=== PATIENT | male | born 1985 | race Two or more races ===

== ENCOUNTER 2021-12-24 19:10 | Inpatient (IN) | payer MEDICAID, OTHER ==
[~2021-12-24] VITALS: Ht 177.8 cm; Wt 155.0 kg
[2021-12-24 20:26] LABS: Basophils # (auto) 0 10 ^3/uL (0-0.2); Basophils % (auto) 0.7 % (0.0-2.0); Eosinophils # (auto) 0.1 10 ^3/uL (0-0.8); Eosinophils % (auto) 2.3 % (0.0-7.0); Hematocrit 44.7 % (41.0-53.0); Hemoglobin 14.8 g/dL (13.5-17.5); Lymphocytes # (auto) 2.1 10 ^3/uL (0.4-5.4); Lymphocytes % (auto) 34.8 % (10.0-50.0); Mean Corpuscular Hemoglobin 32.2 pg (28.0-32.0); Mean Corpuscular Hgb Conc. 33.1 g/dL (32.0-36.0); Mean Corpuscular Volume 97.3 fL (80.0-100.0); Monocytes # (auto) 0.8 10 ^3/uL (0-1.3); Monocytes % (auto) 13.1 % (0.0-12.0); Neutrophils % (auto) 49.1 % (37.0-80.0); Nucleated Red Blood Cells % 0.1 %; Red Cell Distribution Width 14.3 % (11.8-14.3); White Blood Cell 6.1 10^3/uL (4.4-10.8)
[2021-12-24 20:42] LABS: Albumin 3.8 g/dL (3.4-5.0); BUN/Creatinine Ratio 23.9; Calcium 9.6 mg/dL (8.5-10.1); Potassium 3.7 mmol/L (3.5-5.1)
[2021-12-24 20:45] LABS: Bilirubin, Total 0.2 mg/dL (0.2-1.0)
[2021-12-24] MEDS ORDERED: LACTATED RINGER'S 1,000 ML IV ONE (23:45)
[2021-12-24 23:51] LABS: Magnesium 1.9 mg/dL (1.6-2.6); Phosphorus 4.4 mg/dL (2.5-4.90)
[2021-12-25] MEDS ORDERED: ONDANSETRON HCL 4 MG/2 ML VIAL IV PRN (02:15)
[2021-12-25] MEDS ORDERED: DOCUSATE SOD 100 MG CAP PO PRN (02:15)
[2021-12-25] MEDS ORDERED: ACETAMINOPHEN 325 MG TAB PO PRN (02:15)
[2021-12-25] MEDS ORDERED: HYDROcodone-ACET 5/325MG TAB PO PRN (02:15)
[2021-12-25] MEDS ORDERED: NITROGLYCERIN 0.4 MG SL TAB SL PRN (03:30)
[2021-12-25] MEDS ORDERED: LORazepam 2MG/ML-1ML VIAL IV PRN (03:30)
[2021-12-25] MEDS ORDERED: MORPHINE SULFATE INJ 2 MG/ml SYRG IV PRN (03:30)
[2021-12-25] MEDS: SODIUM CHLOR 0.9% PF (SALINE LOCK) 10ML VIAL/SYR IV SCH ×3 (06:13→23:23)
[2021-12-25] MEDS ORDERED: LORazepam MDV 2MG/ML 10 ML IV ONE (07:43)
[2021-12-25] MEDS ORDERED: SODIUM CHLORIDE 0.9% 4,650 ML IV ONE (08:30)
[2021-12-25 08:53] LABS: Basophils # (auto) 0.1 10 ^3/uL (0-0.2); Basophils % (auto) 1.4 % (0.0-2.0); Eosinophils # (auto) 0.1 10 ^3/uL (0-0.8); Eosinophils % (auto) 1.3 % (0.0-7.0); Hematocrit 43.3 % (41.0-53.0); Hemoglobin 14.7 g/dL (13.5-17.5); Lymphocytes # (auto) 1.4 10 ^3/uL (0.4-5.4); Lymphocytes % (auto) 22.1 % (10.0-50.0); Mean Corpuscular Hgb Conc. 33.9 g/dL (32.0-36.0); Mean Corpuscular Volume 97.3 fL (80.0-100.0); Monocytes # (auto) 0.8 10 ^3/uL (0-1.3); Monocytes % (auto) 12.5 % (0.0-12.0); Neutrophils # (auto) 3.9 10 ^3/uL (1.6-8.6); Neutrophils % (auto) 62.7 % (37.0-80.0); Red Blood Cells 4.45 10^6/uL (4.5-5.90); White Blood Cell 6.3 10^3/uL (4.4-10.8)
[2021-12-25 08:58] LABS: Albumin 3.9 g/dL (3.4-5.0); Potassium 4.2 mmol/L (3.5-5.1)
[2021-12-25 09:01] LABS: Bilirubin, Total 0.6 mg/dL (0.2-1.0)
[2021-12-25] MEDS ORDERED: FOLIC ACID 1 MG in D5W 5% 50 ML INJ SCH (10:00)
[2021-12-25] MEDS: THIAMINE 100mg/ml INJ (200mg/2ml VIAL) IV SCH (10:37)
[2021-12-25] MEDS: MULTIPLE VITAMIN TAB PO SCH (10:37)
[2021-12-25] MEDS ORDERED: chlordiazePOXIDE HCL 25 MG CAP PO PRN (11:30)
[2021-12-25] MEDS: chlordiazePOXIDE HCL 25 MG CAP PO SCH ×3 (11:58→23:32)
[2021-12-25] MEDS ORDERED: IOHEXOL 350 MG/ML 100ML IJ ONE (12:28)
[2021-12-25] MEDS: SODIUM CHLORIDE 0.9% 1,000 ML IV SCH ×3 (12:51→23:23)
[2021-12-25] MEDS: PANTOPRAZOLE 40 MG TAB PO SCH (23:22)
[2021-12-25] MEDS: MORPHINE SULFATE INJ 2 MG/ml SYRG IV PRN (23:23)
[2021-12-26] MEDS: SODIUM CHLORIDE 0.9% 1,000 ML IV SCH ×4 (04:17→19:00)
[2021-12-26 05:07] VITALS: BP 137/94
[2021-12-26] MEDS: SODIUM CHLOR 0.9% PF (SALINE LOCK) 10ML VIAL/SYR IV SCH ×3 (05:43→21:33)
[2021-12-26] MEDS: chlordiazePOXIDE HCL 25 MG CAP PO SCH ×5 (05:43→23:48)
[2021-12-26 06:47] LABS: Basophils # (auto) 0.1 10 ^3/uL (0-0.2); Eosinophils # (auto) 0.1 10 ^3/uL (0-0.8); Eosinophils % (auto) 2.4 % (0.0-7.0); Hematocrit 39.3 % (41.0-53.0); Hemoglobin 13.6 g/dL (13.5-17.5); Lymphocytes # (auto) 1.2 10 ^3/uL (0.4-5.4); Lymphocytes % (auto) 22.2 % (10.0-50.0); Mean Corpuscular Hemoglobin 33.7 pg (28.0-32.0); Mean Corpuscular Hgb Conc. 34.6 g/dL (32.0-36.0); Mean Corpuscular Volume 97.3 fL (80.0-100.0); Monocytes # (auto) 0.7 10 ^3/uL (0-1.3); Monocytes % (auto) 13.8 % (0.0-12.0); Neutrophils # (auto) 3.2 10 ^3/uL (1.6-8.6); Neutrophils % (auto) 60.6 % (37.0-80.0); Nucleated Red Blood Cells % 0.1 %; Red Blood Cells 4.04 10^6/uL (4.5-5.90); Red Cell Distribution Width 13.8 % (11.8-14.3); White Blood Cell 5.3 10^3/uL (4.4-10.8)
[2021-12-26 07:00] LABS: Albumin 3.3 g/dL (3.4-5.0); Calcium 7.7 mg/dL (8.5-10.1); Potassium 3.8 mmol/L (3.5-5.1)
[2021-12-26 07:02] LABS: BUN/Creatinine Ratio 17.5
[2021-12-26 07:04] LABS: Bilirubin, Total 0.8 mg/dL (0.2-1.0); Total Protein 6.4 g/dL (6.4-8.2)
[2021-12-26 07:04] LABS: Urine Bacteria NONE SEEN /hpf (None Seen); Urine Blood Negative /uL (Negative); Urine Specific Gravity 1.006 (1.001-1.035); Urine WBC <1 /hpf (0 - 3)
[2021-12-26 07:09] LABS: Alcohol, Urine < 3.0 mg/dL (0-10); Barbiturate Scree,Urine NEGATIVE (NEGATIVE); Benzodiazephine Screen, Urine NEGATIVE (NEGATIVE); Cannabinoid Screen, Urine POSITIVE (NEGATIVE); Cocaine Screen, Urine NEGATIVE (NEGATIVE)
[2021-12-26 07:17] LABS: Amphetamine Screen, Urine NEGATIVE (NEGATIVE); Opiate Scree,Urine NEGATIVE (NEGATIVE); Phencyclidine Screen, Urine NEGATIVE (NEGATIVE)
[2021-12-26 09:00] VITALS: BP 128/97
[2021-12-26] MEDS: PANTOPRAZOLE 40 MG TAB PO SCH ×2 (09:03→21:33)
[2021-12-26] MEDS: THIAMINE 100mg/ml INJ (200mg/2ml VIAL) IV SCH (09:03)
[2021-12-26] MEDS: MULTIPLE VITAMIN TAB PO SCH (09:03)
[2021-12-26] MEDS: MORPHINE SULFATE INJ 2 MG/ml SYRG IV PRN ×2 (09:07→20:31)
[2021-12-26] MEDS ORDERED: PNEUMOCOCCAL VACC POLYS 25 MCG/0.5 ML VIAL IM ONE (10:00)
[2021-12-26 13:00] VITALS: BP 135/102
[2021-12-26] MEDS: FOLIC ACID 1 MG TAB PO SCH (13:26)
[2021-12-26] MEDS: SUCRALFATE 1 GM/10 ML ORAL SUSP PO SCH ×3 (13:27→21:33)
[2021-12-26 17:00] VITALS: BP 142/104
[2021-12-26 22:44] VITALS: BP 121/84
[2021-12-27] MEDS: SODIUM CHLORIDE 0.9% 1,000 ML IV SCH ×2 (03:05→13:50)
[2021-12-27 05:57] VITALS: BP_SYST 134; BP_SYST 141; BP_DIAS 111; BP_DIAS 76
[2021-12-27 06:41] LABS: Albumin 3.3 g/dL (3.4-5.0)
[2021-12-27 06:48] LABS: Bilirubin, Direct 0.2 mg/dL (0-0.2); Bilirubin, Total 0.6 mg/dL (0.2-1.0); Total Protein 6.7 g/dL (6.4-8.2)
[2021-12-27] MEDS: chlordiazePOXIDE HCL 25 MG CAP PO SCH ×2 (06:58→13:17)
[2021-12-27] MEDS: SUCRALFATE 1 GM/10 ML ORAL SUSP PO SCH ×2 (06:58→13:17)
[2021-12-27] MEDS: SODIUM CHLOR 0.9% PF (SALINE LOCK) 10ML VIAL/SYR IV SCH ×2 (06:58→14:00)
[2021-12-27 09:00] VITALS: BP 135/94
[2021-12-27] MEDS: FOLIC ACID 1 MG TAB PO SCH (10:43)
[2021-12-27] MEDS: MULTIPLE VITAMIN TAB PO SCH (10:43)
[2021-12-27] MEDS: THIAMINE 100mg/ml INJ (200mg/2ml VIAL) IV SCH (10:43)
[2021-12-27] MEDS: PANTOPRAZOLE 40 MG TAB PO SCH (10:44)
[2021-12-27] MEDS ORDERED: PANT40T PO (11:22)
[2021-12-27] MEDS ORDERED: MULT-351 PO (11:22)
[2021-12-27 13:00] VITALS: BP_SYST 127; BP_SYST 137; BP_DIAS 112; BP_DIAS 53
== END 2021-12-27 18:00 | disposition home or self-care (01) | DRG 280 ==
LOC: ER 19:10 → EDBD 19:10 → TELE 12-25 03:18 → TELE-WESTW 12-25 22:47
PROVIDERS: ADMIT Nurse Practitioner Family; ATTEND Internal Medicine
PROC: 3E0234Z Introduction of Serum, Toxoid and Vaccine into Muscle, Percutaneous Approach (ICD-10-PCS; principal; 2021-12-26)
DX: K70.9 Alcoholic liver disease, unspecified (principal); F10.120 Alcohol abuse with intoxication, uncomplicated; F43.10 Post-traumatic stress disorder, unspecified; R44.3 Hallucinations, unspecified; Z20.822 Contact with and (suspected) exposure to COVID-19; R79.89 Other specified abnormal findings of blood chemistry; M62.81 Muscle weakness (generalized); R00.0 Tachycardia, unspecified; Z79.899 Other long term (current) drug therapy; Z23 Encounter for immunization
CPT/HCPCS: 36415; 70450; 71275; 80053; 80076; 80307; 81001; 82140; 82550; 83735; 84100; 85025; 85379; 93005; 96361; 96365; 96375; G0378; J7060

== ENCOUNTER 2023-05-08 14:50 | Emergency (ER) | payer MEDICAID ==
[~2023-05-08] VITALS: Ht 175.3 cm; Wt 62.0 kg
[~2023-05-08 14:50] MED LIST: MULT-351 PO; PANT40T PO
[2023-05-08 15:44] LABS: Basophils # (auto) 0.1 10 ^3/uL (0-0.2); Eosinophils # (auto) 0 10 ^3/uL (0-0.8); Eosinophils % (auto) 0.3 % (0.0-7.0); Hemoglobin 14.9 g/dL (13.5-17.5); Monocytes # (auto) 0.5 10 ^3/uL (0-1.3); Red Cell Distribution Width 13.5 % (11.8-14.3); White Blood Cell 4.8 10^3/uL (4.4-10.8)
[2023-05-08] MEDS ORDERED: SODIUM CHLORIDE 0.9% 1,000 ML IVB ONE (15:45)
[2023-05-08 15:46] LABS: Basophils % (auto) 2.2 % (0.0-2.0); Hematocrit 42.9 % (41.0-53.0); Lymphocytes # (auto) 1.1 10 ^3/uL (0.4-5.4); Lymphocytes % (auto) 22.1 % (10.0-50.0); Mean Corpuscular Hemoglobin 34.4 pg (28.0-32.0); Mean Corpuscular Hgb Conc. 34.7 g/dL (32.0-36.0); Mean Corpuscular Volume 98.9 fL (80.0-100.0); Neutrophils # (auto) 3.1 10 ^3/uL (1.6-8.6); Neutrophils % (auto) 65.4 % (37.0-80.0); Nucleated Red Blood Cells % 0.1 %; Red Blood Cells 4.34 10^6/uL (4.5-5.90)
[2023-05-08 16:04] LABS: Alanine Aminotransferase 109 U/L (7-40); Alkaline Phosphatase 85 U/L (46-116); Anion Gap 16 (5-15); Aspartate Aminotransferase 147 U/L (13-40); BUN/Creatinine Ratio 16.5 (10.0-20.0); Bilirubin, Total 0.7 mg/dL (0.2-1.0); Blood Urea Nitrogen 13 mg/dL (9-23); Calcium 9.7 mg/dL (8.7-10.4); Carbon Dioxide 21 mmol/L (20-30); Chloride 96 mmol/L (98-107); Glucose 147 mg/dL (74-106); Sodium 133 mmol/L (136-145); Total Protein 7.9 g/dL (5.7-8.2)
[2023-05-08 16:11] LABS: Blood Alcohol 291.7 mg/dL (<10)
[2023-05-08 16:35] LABS: Acetaminophen < 2.0 UG/ML (10.0-20.0)
[2023-05-08 16:50] LABS: Salicylate < 3.0 mg/dL (2.8-20.0)
[2023-05-08 18:53] VITALS: BP 123/86; PULSE 98; RESP 18; TEMP 98.4; O2SAT 100
== END 2023-05-08 19:53 | disposition home or self-care (01) ==
LOC: ER 14:50
DX: F10.129 Alcohol abuse with intoxication, unspecified (principal); F17.210 Nicotine dependence, cigarettes, uncomplicated; Z79.899 Other long term (current) drug therapy; Y90.8 Blood alcohol level of 240 mg/100 ml or more
CPT/HCPCS: 36415; 74176; 80053; 80320; 80329; 85025; 93005; 96360; 99284; J7030

== ENCOUNTER 2023-10-09 16:03 | Emergency (ER) | payer MEDICAID ==
[~2023-10-09] VITALS: Ht 177.8 cm; Wt 63.3 kg
[2023-10-09 16:46] VITALS: BP 99/68; RESP 18; O2SAT 99
[2023-10-09 16:48] VITALS: PULSE 128
[2023-10-09 18:37] LABS: Basophils # (auto) 0.1 10 ^3/uL (0-0.2); Basophils % (auto) 1.8 % (0.0-2.0); Eosinophils # (auto) 0 10 ^3/uL (0-0.8); Eosinophils % (auto) 0.5 % (0.0-7.0); Hematocrit 40.4 % (41.0-53.0); Hemoglobin 13.5 g/dL (13.5-17.5); Lymphocytes # (auto) 1.5 10 ^3/uL (0.4-5.4); Lymphocytes % (auto) 22.3 % (10.0-50.0); Mean Corpuscular Hemoglobin 33.8 pg (28.0-32.0); Mean Corpuscular Hgb Conc. 33.3 g/dL (32.0-36.0); Mean Corpuscular Volume 101.4 fL (80.0-100.0); Monocytes # (auto) 0.7 10 ^3/uL (0-1.3); Monocytes % (auto) 10.7 % (0.0-12.0); Neutrophils # (auto) 4.3 10 ^3/uL (1.6-8.6); Neutrophils % (auto) 64.7 % (37.0-80.0); Nucleated Red Blood Cells % 0.1 %; Red Blood Cells 3.99 10^6/uL (4.5-5.90); Red Cell Distribution Width 13.8 % (11.8-14.3); White Blood Cell 6.7 10^3/uL (4.4-10.8)
[2023-10-09 19:09] LABS: Alanine Aminotransferase 66 U/L (7-40); Albumin 4.5 g/dL (3.2-4.8); Alkaline Phosphatase 87 U/L (46-116); Anion Gap 9 (5-15); Aspartate Aminotransferase 136 U/L (13-40); BUN/Creatinine Ratio 18.1 (10.0-20.0); Blood Urea Nitrogen 17 mg/dL (9-23); Calcium 9.9 mg/dL (8.5-10.1); Carbon Dioxide 26 mmol/L (20-30); Chloride 109 mmol/L (98-107); Glucose 95 mg/dL (74-106); Sodium 144 mmol/L (136-145)
[2023-10-09 19:10] LABS: Bilirubin, Total 0.4 mg/dL (0.2-1.0); Total Protein 7.3 g/dL (5.7-8.2)
[2023-10-10 07:07] LABS: Magnesium 1.5 mg/dL (1.6-2.6)
== END 2023-10-10 00:29 | disposition left against medical advice (07) ==
LOC: ER 16:03
DX: R06.02 Shortness of breath (principal); R05.9 Cough, unspecified; Z53.21 Procedure and treatment not carried out due to patient leaving prior to being seen by health care provider; Z79.899 Other long term (current) drug therapy
CPT/HCPCS: 36415; 71046; 80053; 83605; 83735; 83880; 85025; 93005

== ENCOUNTER 2023-11-11 08:32 | Emergency (ER) | payer MEDICAID ==
[~2023-11-11] VITALS: Ht 175.3 cm; Wt 64.4 kg
[2023-11-11 08:44] VITALS: BP 113/83; PULSE 114; RESP 16; O2SAT 100
== END 2023-11-11 09:33 | disposition left against medical advice (07) ==
LOC: ER 08:32
DX: R05.9 Cough, unspecified (principal); Z53.21 Procedure and treatment not carried out due to patient leaving prior to being seen by health care provider

== ENCOUNTER → 2023-11-11 | Emergency (ER) | payer MEDICAID | END | disposition left against medical advice (07) | LOC: ER 05:11 | DX: R06.02 Shortness of breath (principal); Z53.21 Procedure and treatment not carried out due to patient leaving prior to being seen by health care provider ==

== ENCOUNTER 2023-11-19 13:26 | Emergency (ER) | payer MEDICAID ==
[~2023-11-19] VITALS: Ht 172.7 cm; Wt 81.6 kg
[2023-11-19 13:55] LABS: Eosinophils # (auto) 0 10 ^3/uL (0-0.8); Eosinophils % (auto) 0.2 % (0.0-7.0); Monocytes # (auto) 0.7 10 ^3/uL (0-1.3); Red Blood Cells 4.11 10^6/uL (4.5-5.90)
[2023-11-19 13:59] LABS: Basophils # (auto) 0.2 10 ^3/uL (0-0.2); Basophils % (auto) 2.1 % (0.0-2.0); Hematocrit 41.5 % (41.0-53.0); Hemoglobin 13.9 g/dL (13.5-17.5); Lymphocytes # (auto) 1.7 10 ^3/uL (0.4-5.4); Lymphocytes % (auto) 23.4 % (10.0-50.0); Mean Corpuscular Hemoglobin 33.9 pg (28.0-32.0); Mean Corpuscular Hgb Conc. 33.6 g/dL (32.0-36.0); Mean Corpuscular Volume 100.8 fL (80.0-100.0); Monocytes % (auto) 9.9 % (0.0-12.0); Neutrophils # (auto) 4.6 10 ^3/uL (1.6-8.6); Neutrophils % (auto) 64.4 % (37.0-80.0); Red Cell Distribution Width 13.7 % (11.8-14.3); White Blood Cell 7.2 10^3/uL (4.4-10.8)
[2023-11-19 14:17] LABS: Alanine Aminotransferase 55 U/L (7-40); Albumin 3.8 g/dL (3.2-4.8); Alkaline Phosphatase 135 U/L (46-116); Anion Gap 11 (5-15); Aspartate Aminotransferase 139 U/L (13-40); BUN/Creatinine Ratio 14.3 (10.0-20.0); Bilirubin, Total 1.3 mg/dL (0.2-1.0); Blood Urea Nitrogen 11 mg/dL (9-23); Calcium 8.6 mg/dL (8.7-10.4); Carbon Dioxide 20 mmol/L (20-30); Chloride 101 mmol/L (98-107); Glucose 97 mg/dL (74-106); Potassium 4.1 mmol/L (3.5-5.1); Sodium 132 mmol/L (136-145); Total Protein 6.6 g/dL (5.7-8.2)
[2023-11-19] MEDS: KETOROLAC TROMETH 60MG/2ML VIAL IM ONE (14:45)
[2023-11-19 18:01] LABS: Amphetamine Screen, Urine Pos (NEGATIVE); Barbiturate Scree,Urine Neg (NEGATIVE); Benzodiazephine Screen, Urine Neg (NEGATIVE); Cocaine Screen, Urine Neg (NEGATIVE); Opiate Scree,Urine Neg (NEGATIVE); Phencyclidine Screen, Urine Neg (NEGATIVE)
[2023-11-19 18:02] LABS: Cannabinoid Screen, Urine Neg (NEGATIVE); Urine Bacteria FEW /hpf (None Seen); Urine Blood Negative /uL (Negative); Urine Clarity Turbid (Clear); Urine Color Yellow (Yellow); Urine Hyaline Cast MOD /lpf (0 - 2); Urine Mucus FEW (None Seen); Urine Protein, UAD 1+ (Negative); Urine Specific Gravity 1.026 (1.001-1.035); Urine Urobilinogen 3 mg/dL (Negative); Urine WBC 12 /hpf (0 - 3); Urine pH 5.5 (5.0-9.0)
[2023-11-19] MEDS ORDERED: IBUP-1455 PO (18:31)
[2023-11-19] MEDS ORDERED: ACET500T58 PO (18:31)
[2023-11-19] MEDS ORDERED: LEVO500T91 PO (18:31)
[2023-11-19 19:42] VITALS: BP 114/77; PULSE 121; RESP 20; TEMP 97.3; O2SAT 100
[2023-11-19] MEDS: levoFLOXacin 250 MG TAB PO ONE (19:48)
== END 2023-11-19 19:51 | disposition home or self-care (01) ==
LOC: ER 13:26
DX: R07.89 Other chest pain (principal); N39.0 Urinary tract infection, site not specified; Z79.899 Other long term (current) drug therapy
CPT/HCPCS: 36415; 71046; 80053; 80307; 81001; 84484; 85025; 93005; 96372; 99285; J1885

== ENCOUNTER 2023-11-25 16:28 | Inpatient (IN) | payer MEDICAID ==
[~2023-11-25] VITALS: Ht 175.3 cm; Wt 65.4 kg
[~2023-11-25 16:28] MED LIST changes: +ACET500T58 PO; +IBUP-1455 PO; +LEVO500T91 PO
[2023-11-25] MEDS: DexAMETHasone SOD PHOS 10MG/1ML VIAL INJ IM ONE (18:25)
[2023-11-25] MEDS: DICYCLOMINE HCL (10MG/ML) 2 ML AMPULE IM ONE (18:25)
[2023-11-25] MEDS: KETOROLAC TROMETH 60MG/2ML VIAL IM ONE (18:26)
[2023-11-25 18:54] LABS: Basophils # (auto) 0.1 10 ^3/uL (0-0.2); Basophils % (auto) 1.1 % (0.0-2.0); Eosinophils # (auto) 0 10 ^3/uL (0-0.8); Eosinophils % (auto) 0.1 % (0.0-7.0); Hematocrit 41.3 % (41.0-53.0); Lymphocytes # (auto) 1.7 10 ^3/uL (0.4-5.4); Lymphocytes % (auto) 23.8 % (10.0-50.0); Mean Corpuscular Hemoglobin 33.2 pg (28.0-32.0); Mean Corpuscular Hgb Conc. 33.8 g/dL (32.0-36.0); Monocytes # (auto) 0.9 10 ^3/uL (0-1.3); Monocytes % (auto) 12.1 % (0.0-12.0); Neutrophils # (auto) 4.5 10 ^3/uL (1.6-8.6); Neutrophils % (auto) 62.9 % (37.0-80.0); Nucleated Red Blood Cells % 0.1 %; Red Blood Cells 4.22 10^6/uL (4.5-5.90); Red Cell Distribution Width 13.5 % (11.8-14.3); White Blood Cell 7.2 10^3/uL (4.4-10.8)
[2023-11-25 19:01] LABS: Chloride 92 mmol/L (98-107); Potassium 3.8 mmol/L (3.5-5.1)
[2023-11-25] MEDS: IPRATROPIUM BROM 0.5 MG/2.5ML INH SOL NEB ONE (19:01)
[2023-11-25] MEDS: ALBUTEROL SULF 2.5 MG/0.5ML(0.5%) NEB SOLN NEB ONE (19:01)
[2023-11-25 19:02] LABS: Anion Gap 9 (5-15); Carbon Dioxide 23 mmol/L (20-30)
[2023-11-25 19:07] LABS: BUN/Creatinine Ratio 10.7 (10.0-20.0); Blood Urea Nitrogen 8 mg/dL (9-23); Glucose 119 mg/dL (74-106)
[2023-11-25 19:08] LABS: Lipase 61 U/L (12-53)
[2023-11-25 19:10] LABS: Sodium 124 mmol/L (136-145)
[2023-11-25 19:22] LABS: Blood Alcohol 281.1 mg/dL (<10)
[2023-11-25] MEDS: SODIUM CHLORIDE 0.9% 1,000 ML IV ONE (19:51)
[2023-11-25] MEDS: THIAMINE 100mg/ml INJ (200mg/2ml VIAL) IV ONE (20:18)
[2023-11-25 20:23] LABS: Urine Bacteria None Seen /hpf (None Seen)
[2023-11-25 20:34] LABS: Urine Blood Negative /uL (Negative); Urine Clarity Clear (Clear); Urine Color Yellow (Yellow); Urine Mucus FEW (None Seen); Urine Protein, UAD 1+ (Negative); Urine Specific Gravity 1.024 (1.001-1.035); Urine Urobilinogen Normal (Negative); Urine WBC 3 /hpf (0 - 3); Urine pH 5.5 (5.0-9.0)
[2023-11-25 20:43] LABS: Amphetamine Screen, Urine Pos (NEGATIVE); Barbiturate Scree,Urine Neg (NEGATIVE); Benzodiazephine Screen, Urine Neg (NEGATIVE); Cannabinoid Screen, Urine Neg (NEGATIVE); Cocaine Screen, Urine Neg (NEGATIVE); Opiate Scree,Urine Neg (NEGATIVE); Phencyclidine Screen, Urine Neg (NEGATIVE)
[2023-11-25 20:48] VITALS: PULSE 120; RESP 24
[2023-11-25] MEDS: LORazepam 0.5 MG TAB PO ONE (21:22)
[2023-11-25] MEDS ORDERED: ALBUTEROL SULF 2.5 MG/0.5ML(0.5%) NEB SOLN NEB PRN (22:00)
[2023-11-25] MEDS ORDERED: IPRATROPIUM BROM 0.5 MG/2.5ML INH SOL NEB PRN (22:00)
[2023-11-25 22:11] VITALS: BP 106/78; PULSE 105; RESP 20; O2SAT 96
[2023-11-25] MEDS ORDERED: MORPHINE SULFATE INJ 2 MG/ml SYRG IV PRN (23:15)
[2023-11-25] MEDS ORDERED: NITROGLYCERIN 0.4 MG SL TAB SL PRN (23:15)
[2023-11-25] MEDS: FUROSEMIDE 20 MG/2 ML VIAL IV ONE (23:39)
[2023-11-25] MEDS: SODIUM CHLOR 0.9% PF (SALINE LOCK) 10ML VIAL/SYR IV SCH (23:39)
[2023-11-26] VITALS (10 sets, daily range): BP systolic 109–125; BP diastolic 72–89; PULSE 113–127; RESP 15–22; TEMP 97.6–98.2; O2SAT 91–98
[2023-11-26 06:53] LABS: Alanine Aminotransferase 44 U/L (7-40); Alkaline Phosphatase 144 U/L (46-116); Anion Gap 7 (5-15); Blood Urea Nitrogen 10 mg/dL (9-23); Calcium 8.8 mg/dL (8.5-10.1); Carbon Dioxide 25 mmol/L (20-30); Chloride 94 mmol/L (98-107); Glucose 144 mg/dL (74-106); Potassium 3.8 mmol/L (3.5-5.1); Sodium 126 mmol/L (136-145)
[2023-11-26 06:54] LABS: Albumin 3.7 g/dL (3.2-4.8); Aspartate Aminotransferase 95 U/L (13-40)
[2023-11-26 06:55] LABS: Bilirubin, Total 0.9 mg/dL (0.2-1.0); Total Protein 6.3 g/dL (5.7-8.2)
[2023-11-26 07:11] LABS: Basophils # (auto) 0 10 ^3/uL (0-0.2); Basophils % (auto) 0.1 % (0.0-2.0); Eosinophils # (auto) 0 10 ^3/uL (0-0.8); Hematocrit 42.9 % (41.0-53.0); Hemoglobin 14.6 g/dL (13.5-17.5); Lymphocytes # (auto) 0.3 10 ^3/uL (0.4-5.4); Lymphocytes % (auto) 9.2 % (10.0-50.0); Mean Corpuscular Hemoglobin 33.7 pg (28.0-32.0); Mean Corpuscular Volume 99.3 fL (80.0-100.0); Monocytes # (auto) 0.1 10 ^3/uL (0-1.3); Monocytes % (auto) 1.8 % (0.0-12.0); Neutrophils # (auto) 2.6 10 ^3/uL (1.6-8.6); Neutrophils % (auto) 88.9 % (37.0-80.0); Red Blood Cells 4.32 10^6/uL (4.5-5.90); Red Cell Distribution Width 13.6 % (11.8-14.3)
[2023-11-26] MEDS: MULTIPLE VITAMIN TAB PO SCH (08:04)
[2023-11-26] MEDS: THIAMINE 100mg/ml INJ (200mg/2ml VIAL) IV SCH (08:05)
[2023-11-26] MEDS: FUROSEMIDE 20 MG/2 ML VIAL IV SCH ×2 (08:05→21:26)
[2023-11-26] MEDS: LORazepam 2MG/ML-1ML VIAL IV PRN (08:16)
[2023-11-26] MEDS: FOLIC ACID 1 MG in D5W 5% 50 ML INJ SCH (10:00)
[2023-11-26] MEDS: CARVEDILOL 3.125 MG TAB PO ONE (13:11)
[2023-11-26] MEDS: CARVEDILOL 3.125 MG TAB PO SCH (21:26)
[2023-11-26] MEDS ORDERED: CARVEDILOL 3.125 MG TAB PO SCH (22:00)
[2023-11-27] VITALS (9 sets, daily range): BP systolic 110–143; BP diastolic 75–93; PULSE 72–134; RESP 16–22; TEMP 97.7–98.3; O2SAT 93–97
[2023-11-27 05:29] LABS: Basophils # (auto) 0 10 ^3/uL (0-0.2); Basophils % (auto) 0.4 % (0.0-2.0); Eosinophils # (auto) 0 10 ^3/uL (0-0.8); Hematocrit 44.4 % (41.0-53.0); Hemoglobin 15.1 g/dL (13.5-17.5); Lymphocytes # (auto) 0.7 10 ^3/uL (0.4-5.4); Lymphocytes % (auto) 4.8 % (10.0-50.0); Mean Corpuscular Hemoglobin 33.7 pg (28.0-32.0); Mean Corpuscular Hgb Conc. 33.9 g/dL (32.0-36.0); Mean Corpuscular Volume 99.5 fL (80.0-100.0); Monocytes # (auto) 0.9 10 ^3/uL (0-1.3); Monocytes % (auto) 6.8 % (0.0-12.0); Neutrophils # (auto) 12.1 10 ^3/uL (1.6-8.6); Red Blood Cells 4.46 10^6/uL (4.5-5.90); Red Cell Distribution Width 13.7 % (11.8-14.3); White Blood Cell 13.7 10^3/uL (4.4-10.8)
[2023-11-27 05:43] LABS: Alanine Aminotransferase 50 U/L (7-40); Albumin 3.6 g/dL (3.2-4.8); Alkaline Phosphatase 148 U/L (46-116); Amylase 59 U/L (30-118); Anion Gap 8 (5-15); Aspartate Aminotransferase 143 U/L (13-40); BUN/Creatinine Ratio 14.5 (10.0-20.0); Bilirubin, Total 0.9 mg/dL (0.2-1.0); Blood Urea Nitrogen 12 mg/dL (9-23); Calcium 8.6 mg/dL (8.7-10.4); Carbon Dioxide 25 mmol/L (20-30); Chloride 97 mmol/L (98-107); Glucose 162 mg/dL (74-106); Lipase 69 U/L (12-53); Potassium 3.9 mmol/L (3.5-5.1); Sodium 130 mmol/L (136-145); Total Protein 6.3 g/dL (5.7-8.2)
[2023-11-27 09:34] LABS: Hepatitis B Surface Antigen Negative (Negative)
[2023-11-27 09:58] LABS: Hepatitis C Antibody Negative (Negative)
[2023-11-27] MEDS: ACETAMINOPHEN 325 MG TAB PO PRN (12:00)
[2023-11-28] VITALS (8 sets, daily range): BP systolic 94–144; BP diastolic 61–85; PULSE 74–125; RESP 16–22; TEMP 97.2–98; O2SAT 91–100
[2023-11-28 06:08] LABS: Anion Gap 8 (5-15); Carbon Dioxide 26 mmol/L (20-30); Chloride 98 mmol/L (98-107); Potassium 3.3 mmol/L (3.5-5.1); Sodium 132 mmol/L (136-145)
[2023-11-28 06:10] LABS: Calcium 8.5 mg/dL (8.5-10.1)
[2023-11-28 06:14] LABS: Glucose 109 mg/dL (74-106)
[2023-11-28 06:15] LABS: BUN/Creatinine Ratio 21.6 (10.0-20.0); Blood Urea Nitrogen 16 mg/dL (9-23); Magnesium 1.4 mg/dL (1.6-2.6)
[2023-11-28] MEDS: MAGNESIUM OXIDE 400 MG TAB PO SCH (11:21)
[2023-11-28] MEDS: POTASSIUM CHL 20 Meq TABLET PO ONE (11:57)
[2023-11-29] VITALS (8 sets, daily range): BP systolic 92–121; BP diastolic 62–98; PULSE 115–121; RESP 16–23; TEMP 92.1–98; O2SAT 94–100
[2023-11-29 06:33] LABS: Anion Gap 8 (5-15); Carbon Dioxide 22 mmol/L (20-30); Chloride 98 mmol/L (98-107); Potassium 3.9 mmol/L (3.5-5.1); Sodium 128 mmol/L (136-145)
[2023-11-29 06:39] LABS: BUN/Creatinine Ratio 29.7 (10.0-20.0); Blood Urea Nitrogen 22 mg/dL (9-23); Glucose 102 mg/dL (74-106)
[2023-11-29 06:40] LABS: Calcium 8.4 mg/dL (8.5-10.1); Magnesium 1.7 mg/dL (1.6-2.6)
[2023-11-29] MEDS ORDERED: GABA-1250 PO (14:16)
[2023-11-29] MEDS ORDERED: PRA1C PO (14:16)
[2023-11-29] MEDS ORDERED: ESCI10TA PO (14:16)
[2023-11-29] MEDS: LORazepam 2MG/ML-1ML VIAL IV PRN (15:01)
[2023-11-29] MEDS: PANTOPRAZOLE 40 MG/10 ML VIAL INJ IV ONE (15:38)
[2023-11-29] MEDS: NICOTINE 14 MG/24HR TOPICAL PATCH TD ONE (15:39)
[2023-11-29] MEDS: CITALOPRAM HYDROBR 20 MG TAB PO ONE (15:41)
[2023-11-29] MEDS: GABAPENTIN 300 MG CAP PO ONE (15:41)
[2023-11-29] MEDS: ONDANSETRON HCL 4 MG/2 ML VIAL IV PRN (17:36)
[2023-11-29] MEDS: GABAPENTIN 300 MG CAP PO SCH (21:30)
[2023-11-30] VITALS (7 sets, daily range): BP systolic 110–128; BP diastolic 87–94; PULSE 76–137; RESP 16–20; TEMP 96.7–97.2; O2SAT 98–100
[2023-11-30 06:56] LABS: Alanine Aminotransferase 44 U/L (7-40); Alkaline Phosphatase 125 U/L (46-116); Anion Gap 9 (5-15); Aspartate Aminotransferase 88 U/L (13-40); Blood Urea Nitrogen 20 mg/dL (9-23); Calcium 8.6 mg/dL (8.7-10.4); Carbon Dioxide 23 mmol/L (20-30); Chloride 93 mmol/L (98-107); Glucose 135 mg/dL (74-106); Magnesium 1.7 mg/dL (1.6-2.6); Potassium 4.2 mmol/L (3.5-5.1); Sodium 125 mmol/L (136-145)
[2023-11-30 06:57] LABS: Albumin 3.8 g/dL (3.2-4.8); Bilirubin, Total 1.2 mg/dL (0.2-1.0); Total Protein 6.4 g/dL (5.7-8.2)
[2023-11-30] MEDS: PANTOPRAZOLE 40 MG/10 ML VIAL INJ IV SCH (10:56)
[2023-11-30] MEDS: CITALOPRAM HYDROBR 20 MG TAB PO SCH (10:58)
[2023-11-30] MEDS: NICOTINE 14 MG/24HR TOPICAL PATCH TD SCH (11:00)
[2023-11-30 14:03] LABS: Amphetamine Screen, Urine Neg (NEGATIVE); Benzodiazephine Screen, Urine Neg (NEGATIVE)
[2023-11-30 14:04] LABS: Barbiturate Scree,Urine Neg (NEGATIVE); Cannabinoid Screen, Urine Neg (NEGATIVE); Cocaine Screen, Urine Neg (NEGATIVE); Opiate Scree,Urine Neg (NEGATIVE); Phencyclidine Screen, Urine Neg (NEGATIVE)
[2023-12-01] VITALS (8 sets, daily range): BP systolic 103–121; BP diastolic 80–95; PULSE 61–114; RESP 18–20; TEMP 97.3–98.2; O2SAT 94–100
[2023-12-01 07:16] LABS: Calcium 8.6 mg/dL (8.5-10.1); Chloride 93 mmol/L (98-107); Potassium 4.3 mmol/L (3.5-5.1); Sodium 125 mmol/L (136-145)
[2023-12-01 07:17] LABS: Anion Gap 5 (5-15); Carbon Dioxide 27 mmol/L (20-30)
[2023-12-01 07:22] LABS: Glucose 136 mg/dL (74-106)
[2023-12-01 07:23] LABS: Magnesium 1.8 mg/dL (1.6-2.6)
[2023-12-01 07:25] LABS: Blood Urea Nitrogen 32 mg/dL (9-23)
[2023-12-02] VITALS (10 sets, daily range): BP systolic 100–132; BP diastolic 75–95; PULSE 93–105; RESP 14–22; TEMP 96.2–98.1; O2SAT 97–100
[2023-12-02 06:01] LABS: Basophils # (auto) 0 10 ^3/uL (0-0.2); Basophils % (auto) 0.2 % (0.0-2.0); Eosinophils # (auto) 0 10 ^3/uL (0-0.8); Eosinophils % (auto) 0.1 % (0.0-7.0); Hematocrit 43.5 % (41.0-53.0); Hemoglobin 14.2 g/dL (13.5-17.5); Lymphocytes # (auto) 1.3 10 ^3/uL (0.4-5.4); Lymphocytes % (auto) 12.1 % (10.0-50.0); Mean Corpuscular Hemoglobin 32.4 pg (28.0-32.0); Mean Corpuscular Hgb Conc. 32.6 g/dL (32.0-36.0); Mean Corpuscular Volume 99.6 fL (80.0-100.0); Monocytes # (auto) 1.3 10 ^3/uL (0-1.3); Monocytes % (auto) 12.2 % (0.0-12.0); Neutrophils # (auto) 8.4 10 ^3/uL (1.6-8.6); Neutrophils % (auto) 75.4 % (37.0-80.0); Nucleated Red Blood Cells % 0.1 %; Red Blood Cells 4.37 10^6/uL (4.5-5.90); Red Cell Distribution Width 13.6 % (11.8-14.3); White Blood Cell 11.1 10^3/uL (4.4-10.8)
[2023-12-02 06:21] LABS: Anion Gap 5 (5-15); Carbon Dioxide 28 mmol/L (20-30); Chloride 91 mmol/L (98-107); Potassium 4.8 mmol/L (3.5-5.1); Sodium 124 mmol/L (136-145)
[2023-12-02 06:22] LABS: Calcium 8.2 mg/dL (8.5-10.1)
[2023-12-02 06:27] LABS: BUN/Creatinine Ratio 29.9 (10.0-20.0); Blood Urea Nitrogen 29 mg/dL (9-23); Glucose 113 mg/dL (74-106)
[2023-12-02 06:28] LABS: Magnesium 2.1 mg/dL (1.6-2.6)
[2023-12-02] MEDS ORDERED: ALBUTEROL SULF 2.5 MG/0.5ML(0.5%) NEB SOLN NEB PRN (16:45)
[2023-12-02] MEDS ORDERED: ALBUTEROL SULF 2.5 MG/0.5ML(0.5%) NEB SOLN ONE (16:48)
[2023-12-02] MEDS: DOCUSATE SOD 100 MG CAP PO PRN (22:37)
[2023-12-03] VITALS (10 sets, daily range): BP systolic 101–147; BP diastolic 74–86; PULSE 55–100; RESP 14–22; TEMP 97.7–98.1; O2SAT 95–100
[2023-12-04] VITALS (11 sets, daily range): BP systolic 85–109; BP diastolic 46–83; PULSE 10–104; RESP 19–21; TEMP 96.5–98.6; O2SAT 93–100
[2023-12-04 09:44] LABS: INR 1.61 (0.9-1.15); Partial Thromboplastin Time 27.1 SEC (24.5-34.5); Prothrombin Time 16.5 sec (9.3-11.8)
[2023-12-04] MEDS: FUROSEMIDE 40 MG/4 ML VIAL IV SCH (11:38)
[2023-12-04 14:03] LABS: Body Fluid Polymorphonuclear 6 % (0-25); Body Fluid Red Blood Cells 300 CUMM (0-2000); Body Fluid White Blood Cells 340 CUMM (0-200)
[2023-12-05] VITALS (10 sets, daily range): BP systolic 91–116; BP diastolic 67–83; PULSE 90–112; RESP 16–20; TEMP 97.6–98.4; O2SAT 96–100
[2023-12-05] MEDS: THIAMINE HCL 100 MG TAB PO SCH (14:10)
[2023-12-05] MEDS: FOLIC ACID 1 MG TAB PO SCH (14:11)
[2023-12-05] MEDS: FAMOTIDINE 20 MG TAB PO SCH (14:35)
[2023-12-05] MEDS: LORazepam 2MG/ML-1ML VIAL IV PRN (14:35)
[2023-12-05 15:00] LABS: Body Fluid pH 8
[2023-12-05 15:01] LABS: Body Fluid Polymorphonuclear 8 % (0-25); Body Fluid Red Blood Cells 415 CUMM (0-2000); Body Fluid White Blood Cells 402.5 CUMM (0-200)
[2023-12-05 15:07] LABS: Protein, Body Fluid 1.9 g/dL (.)
[2023-12-05] MEDS: LORazepam 2MG/ML-1ML VIAL ONE (22:35)
[2023-12-06 01:00] VITALS: BP 96/70; PULSE 90; RESP 18; TEMP 98.1; O2SAT 96
[2023-12-06 05:00] VITALS: BP 100/74; PULSE 95; RESP 18; TEMP 98.3; O2SAT 98
[2023-12-06 05:12] LABS: Basophils # (auto) 0.1 10 ^3/uL (0-0.2); Basophils % (auto) 0.6 % (0.0-2.0); Eosinophils # (auto) 0 10 ^3/uL (0-0.8); Eosinophils % (auto) 0.1 % (0.0-7.0); Hematocrit 44.1 % (41.0-53.0); Hemoglobin 14.5 g/dL (13.5-17.5); Lymphocytes # (auto) 1.4 10 ^3/uL (0.4-5.4); Lymphocytes % (auto) 11.4 % (10.0-50.0); Mean Corpuscular Hemoglobin 32.5 pg (28.0-32.0); Mean Corpuscular Hgb Conc. 32.9 g/dL (32.0-36.0); Mean Corpuscular Volume 98.9 fL (80.0-100.0); Monocytes # (auto) 1.4 10 ^3/uL (0-1.3); Monocytes % (auto) 11.8 % (0.0-12.0); Neutrophils # (auto) 9.4 10 ^3/uL (1.6-8.6); Neutrophils % (auto) 76.1 % (37.0-80.0); Red Blood Cells 4.46 10^6/uL (4.5-5.90); Red Cell Distribution Width 13.9 % (11.8-14.3); White Blood Cell 12.3 10^3/uL (4.4-10.8)
[2023-12-06 05:25] LABS: Alanine Aminotransferase 41 U/L (7-40); Albumin 3.3 g/dL (3.2-4.8); Alkaline Phosphatase 147 U/L (46-116); Anion Gap 3 (5-15); Aspartate Aminotransferase 71 U/L (13-40); BUN/Creatinine Ratio 26.9 (10.0-20.0); Bilirubin, Total 1.1 mg/dL (0.2-1.0); Blood Urea Nitrogen 25 mg/dL (9-23); Calcium 8.6 mg/dL (8.7-10.4); Carbon Dioxide 30 mmol/L (20-30); Chloride 91 mmol/L (98-107); Glucose 111 mg/dL (74-106); Magnesium 2.2 mg/dL (1.6-2.6); Potassium 4.7 mmol/L (3.5-5.1); Sodium 124 mmol/L (136-145); Total Protein 5.5 g/dL (5.7-8.2)
[2023-12-06 09:00] VITALS: BP 102/68; PULSE 91; RESP 18; O2SAT 98
[2023-12-06 09:15] VITALS: O2SAT 93
[2023-12-06] MEDS ORDERED: CARV-214 PO (09:29)
[2023-12-06] MEDS ORDERED: FOLI-119 PO (09:29)
[2023-12-06] MEDS ORDERED: THIA100T10 PO (09:29)
[2023-12-06 12:07] LABS: Protein, Body Fluid 1.9 g/dL (.)
[2023-12-06 12:41] VITALS: BP 102/68; PULSE 91; RESP 18; O2SAT 96
[2023-12-06 13:00] VITALS: BP 93/75; PULSE 96; RESP 20; TEMP 98; O2SAT 95
== END 2023-12-06 13:52 | disposition home or self-care (01) | DRG 194 ==
LOC: ER 16:28 → TELE 23:03 → TELE-E-ADS 23:03 → TELE-EAST 11-29 01:25
PROVIDERS: ADMIT Nurse Practitioner Family; ATTEND Internal Medicine Geriatric Medicine
PROC: 0W993ZZ Drainage of Right Pleural Cavity, Percutaneous Approach (ICD-10-PCS; principal; 2023-12-04)
PROC: 0W9B3ZZ Drainage of Left Pleural Cavity, Percutaneous Approach (ICD-10-PCS; 2023-12-05)
DX: I50.23 Acute on chronic systolic (congestive) heart failure (principal); J96.01 Acute respiratory failure with hypoxia; K85.90 Acute pancreatitis without necrosis or infection, unspecified; K70.10 Alcoholic hepatitis without ascites; I42.9 Cardiomyopathy, unspecified; E87.8 Other disorders of electrolyte and fluid balance, not elsewhere classified; E87.1 Hypo-osmolality and hyponatremia; T51.0X1A Toxic effect of ethanol, accidental (unintentional), initial encounter; F17.210 Nicotine dependence, cigarettes, uncomplicated; F10.229 Alcohol dependence with intoxication, unspecified; E83.42 Hypomagnesemia; F19.239 Other psychoactive substance dependence with withdrawal, unspecified; K76.0 Fatty (change of) liver, not elsewhere classified; J90 Pleural effusion, not elsewhere classified; F15.10 Other stimulant abuse, uncomplicated; D72.819 Decreased white blood cell count, unspecified; Z79.899 Other long term (current) drug therapy; Z71.6 Tobacco abuse counseling; Z91.199 Patient's noncompliance with other medical treatment and regimen due to unspecified reason; T50.995A Adverse effect of other drugs, medicaments and biological substances, initial encounter; Y92.89 Other specified places as the place of occurrence of the external cause; Y90.8 Blood alcohol level of 240 mg/100 ml or more
CPT/HCPCS: 32555; 36415; 71045; 71275; 76604; 76942; 80048; 80053; 80307; 80320; 81001; 82150; 83690; 83735; 83880; 83986; 84484; 85025; 85610; 85730; 86803; 87070; 87205; 87340; 89051; 93306; 94640; 97110; 97116; 97162; 97530; C9113; G0378; J1100; J1885; J2405; J7060

== ENCOUNTER 2023-12-09 19:19 | Inpatient (IN) | payer MEDICAID ==
[~2023-12-09] VITALS: Ht 175.3 cm; Wt 57.5 kg
[~2023-12-09 19:19] MED LIST changes: -ACET500T58 PO; +CARV-214 PO; +ESCI10TA PO; +FOLI-119 PO; +GABA-1250 PO; -IBUP-1455 PO; -LEVO500T91 PO; +PRA1C PO; +THIA100T10 PO
[2023-12-09 21:05] LABS: Basophils # (auto) 0.1 10 ^3/uL (0-0.2); Basophils % (auto) 0.6 % (0.0-2.0); Eosinophils # (auto) 0.1 10 ^3/uL (0-0.8); Eosinophils % (auto) 0.6 % (0.0-7.0); Hematocrit 43.4 % (41.0-53.0); Hemoglobin 14.4 g/dL (13.5-17.5); Lymphocytes # (auto) 1.2 10 ^3/uL (0.4-5.4); Lymphocytes % (auto) 10.9 % (10.0-50.0); Mean Corpuscular Hemoglobin 32.1 pg (28.0-32.0); Mean Corpuscular Hgb Conc. 33.1 g/dL (32.0-36.0); Mean Corpuscular Volume 97.1 fL (80.0-100.0); Monocytes # (auto) 1.3 10 ^3/uL (0-1.3); Monocytes % (auto) 12.3 % (0.0-12.0); Neutrophils # (auto) 8.3 10 ^3/uL (1.6-8.6); Neutrophils % (auto) 75.6 % (37.0-80.0); Nucleated Red Blood Cells % 0.1 %; Red Blood Cells 4.47 10^6/uL (4.5-5.90); White Blood Cell 10.9 10^3/uL (4.4-10.8)
[2023-12-09 21:24] LABS: Alanine Aminotransferase 47 U/L (7-40); Alkaline Phosphatase 164 U/L (46-116); Anion Gap 6 (5-15); Aspartate Aminotransferase 91 U/L (13-40); BUN/Creatinine Ratio 11.5 (10.0-20.0); Blood Alcohol 23.9 mg/dL (<10); Blood Urea Nitrogen 7 mg/dL (9-23); Calcium 8.9 mg/dL (8.5-10.1); Carbon Dioxide 28 mmol/L (20-30); Chloride 99 mmol/L (98-107); Glucose 89 mg/dL (74-106); Potassium 3.5 mmol/L (3.5-5.1)
[2023-12-09 21:25] LABS: Albumin 3.4 g/dL (3.2-4.8); Bilirubin, Total 1.2 mg/dL (0.2-1.0); Total Protein 5.6 g/dL (5.7-8.2)
[2023-12-09 21:26] LABS: Sodium 133 mmol/L (136-145)
[2023-12-09 21:27] LABS: Lipase 121 U/L (12-53)
[2023-12-09] MEDS ORDERED: ONDANSETRON HCL 4 MG/2 ML VIAL IV ONE (22:15)
[2023-12-09] MEDS ORDERED: PIPERACILLIN-TAZO 4.5GM 100 ML IV ONE (22:15)
[2023-12-09] MEDS ORDERED: MORPHINE SULFATE 4 MG/ML SYR/VIAL IV ONE (22:15)
[2023-12-09] MEDS: chlordiazePOXIDE HCL 25 MG CAP PO ONE (23:51)
[2023-12-09] MEDS: LORazepam 0.5 MG TAB PO ONE (23:51)
[2023-12-10 00:20] LABS: Urine Bacteria FEW /hpf (None Seen); Urine Blood Negative /uL (Negative); Urine Clarity Clear (Clear); Urine Color Yellow (Yellow); Urine Mucus FEW (None Seen); Urine Protein, UAD TRACE (Negative); Urine Specific Gravity 1.024 (1.001-1.035); Urine Urobilinogen 12 mg/dL (Negative); Urine WBC 17 /hpf (0 - 3)
[2023-12-10 00:29] LABS: Amphetamine Screen, Urine Neg (NEGATIVE); Barbiturate Scree,Urine Neg (NEGATIVE); Benzodiazephine Screen, Urine Neg (NEGATIVE)
[2023-12-10 00:30] LABS: Cannabinoid Screen, Urine Neg (NEGATIVE); Cocaine Screen, Urine Neg (NEGATIVE); Opiate Scree,Urine Neg (NEGATIVE); Phencyclidine Screen, Urine Neg (NEGATIVE)
[2023-12-10 09:20] VITALS: PULSE 98; RESP 18; O2SAT 97
[2023-12-10] MEDS ORDERED: LORazepam 2MG/ML-1ML VIAL IV PRN (11:15)
[2023-12-10] MEDS ORDERED: NITROGLYCERIN 0.4 MG SL TAB SL PRN (11:15)
[2023-12-10] MEDS ORDERED: ONDANSETRON HCL 4 MG/2 ML VIAL IV PRN (11:15)
[2023-12-10] MEDS ORDERED: VANCOMYCIN PER PHARMACY 0 MG IV SCH ×2 (11:15→11:30)
[2023-12-10] MEDS ORDERED: DOCUSATE SOD 100 MG CAP PO PRN (11:15)
[2023-12-10] MEDS ORDERED: MORPHINE SULFATE INJ 2 MG/ml SYRG IV PRN ×2 (11:15)
[2023-12-10] MEDS: MULTIPLE VITAMINS W/ MINERALS TAB PO SCH (11:28)
[2023-12-10] MEDS: FUROSEMIDE 40 MG/4 ML VIAL IV ONE (11:28)
[2023-12-10] MEDS: THIAMINE HCL 100 MG TAB PO SCH (11:28)
[2023-12-10 12:08] LABS: INR 1.27 (0.9-1.15); Prothrombin Time 13.2 sec (9.3-11.8)
[2023-12-10] MEDS: VANCOMYCIN 1GM/200ML 200 ML IV ONE ×2 (13:31→13:39)
[2023-12-10] MEDS: PANTOPRAZOLE 40 MG TAB PO SCH (13:31)
[2023-12-10] MEDS: FOLIC ACID 1 MG TAB PO SCH (13:32)
[2023-12-10] MEDS: CEFEPIME 2GM/50ML NS 50 ML IV ONE ×2 (13:39→14:50)
[2023-12-10 17:12] VITALS: BP 119/82; PULSE 102; PULSE 107; RESP 16; RESP 18; TEMP 97.6; O2SAT 98
[2023-12-10] MEDS: FUROSEMIDE 40 MG/4 ML VIAL IV SCH (18:21)
[2023-12-10] MEDS: VANCOMYCIN 1GM/200ML 200 ML IV SCH (18:22)
[2023-12-10 20:00] VITALS: PULSE 106; RESP 17; O2SAT 95
[2023-12-10] MEDS: CEFEPIME 2GM/50ML NS 50 ML IV SCH (20:43)
[2023-12-10 22:00] VITALS: BP 95/63; PULSE 97; RESP 17; TEMP 98.2; O2SAT 95
[2023-12-11] VITALS (8 sets, daily range): BP systolic 87–107; BP diastolic 41–74; PULSE 88–105; RESP 16–20; TEMP 97.5–98.7; O2SAT 91–96
[2023-12-11 06:21] LABS: Basophils # (auto) 0.2 10 ^3/uL (0-0.2); Basophils % (auto) 1.3 % (0.0-2.0); Eosinophils # (auto) 0.1 10 ^3/uL (0-0.8); Eosinophils % (auto) 1.1 % (0.0-7.0); Hematocrit 45.2 % (41.0-53.0); Hemoglobin 15.2 g/dL (13.5-17.5); Lymphocytes # (auto) 1.5 10 ^3/uL (0.4-5.4); Lymphocytes % (auto) 13.5 % (10.0-50.0); Mean Corpuscular Hemoglobin 32.4 pg (28.0-32.0); Mean Corpuscular Hgb Conc. 33.6 g/dL (32.0-36.0); Mean Corpuscular Volume 96.3 fL (80.0-100.0); Monocytes # (auto) 1.6 10 ^3/uL (0-1.3); Monocytes % (auto) 14.1 % (0.0-12.0); Neutrophils # (auto) 7.9 10 ^3/uL (1.6-8.6); Nucleated Red Blood Cells % 0.1 %; Red Blood Cells 4.69 10^6/uL (4.5-5.90); Red Cell Distribution Width 14.4 % (11.8-14.3); White Blood Cell 11.3 10^3/uL (4.4-10.8)
[2023-12-11 06:23] LABS: Alanine Aminotransferase 50 U/L (7-40); Albumin 3.2 g/dL (3.2-4.8); Alkaline Phosphatase 163 U/L (46-116); Anion Gap 5 (5-15); Aspartate Aminotransferase 97 U/L (13-40); BUN/Creatinine Ratio 15.3 (10.0-20.0); Bilirubin, Total 1.2 mg/dL (0.2-1.0); Blood Alcohol < 3.0 mg/dL (<10); Blood Urea Nitrogen 11 mg/dL (9-23); Calcium 8.7 mg/dL (8.5-10.1); Carbon Dioxide 29 mmol/L (20-30); Chloride 104 mmol/L (98-107); Glucose 97 mg/dL (74-106); Potassium 3.2 mmol/L (3.5-5.1); Sodium 138 mmol/L (136-145); Total Protein 5.4 g/dL (5.7-8.2)
[2023-12-11] MEDS: CITALOPRAM HYDROBR 20 MG TAB PO SCH (09:47)
[2023-12-11 12:59] LABS: Hepatitis B Core Total AB Negative (Negative)
[2023-12-11] MEDS: ALBUMIN 5% 50 ML IV ONE (14:58)
[2023-12-12] VITALS (9 sets, daily range): BP systolic 91–142; BP diastolic 57–70; PULSE 93–116; RESP 17–20; TEMP 97.4–98.4; O2SAT 91–99
[2023-12-12] MEDS: LORazepam 2MG/ML-1ML VIAL IV PRN ×2 (02:33→21:35)
[2023-12-12] MEDS: FUROSEMIDE 40 MG/4 ML VIAL IV SCH (06:00)
[2023-12-12] MEDS: SPIRONOLACTONE 25 MG TAB PO SCH (10:00)
[2023-12-12] MEDS ORDERED: SPIRONOLACTONE 25 MG TAB PO SCH (10:00)
[2023-12-12 11:18] LABS: Basophils # (auto) 0.2 10 ^3/uL (0-0.2); Basophils % (auto) 2.1 % (0.0-2.0); Eosinophils # (auto) 0.1 10 ^3/uL (0-0.8); Hematocrit 46.9 % (41.0-53.0); Hemoglobin 15.6 g/dL (13.5-17.5); Lymphocytes # (auto) 1.3 10 ^3/uL (0.4-5.4); Lymphocytes % (auto) 15.5 % (10.0-50.0); Mean Corpuscular Hemoglobin 32.2 pg (28.0-32.0); Mean Corpuscular Hgb Conc. 33.4 g/dL (32.0-36.0); Mean Corpuscular Volume 96.4 fL (80.0-100.0); Monocytes # (auto) 0.9 10 ^3/uL (0-1.3); Monocytes % (auto) 10.6 % (0.0-12.0); Neutrophils # (auto) 6.2 10 ^3/uL (1.6-8.6); Neutrophils % (auto) 70.8 % (37.0-80.0); Nucleated Red Blood Cells % 0.1 %; Red Blood Cells 4.86 10^6/uL (4.5-5.90); Red Cell Distribution Width 14.4 % (11.8-14.3); White Blood Cell 8.7 10^3/uL (4.4-10.8)
[2023-12-12 11:32] LABS: Alanine Aminotransferase 55 U/L (7-40); Albumin 3.2 g/dL (3.2-4.8); Alkaline Phosphatase 151 U/L (46-116); Anion Gap 5 (5-15); Aspartate Aminotransferase 112 U/L (13-40); BUN/Creatinine Ratio 14.7 (10.0-20.0); Blood Urea Nitrogen 11 mg/dL (9-23); Calcium 8.9 mg/dL (8.5-10.1); Carbon Dioxide 28 mmol/L (20-30); Chloride 100 mmol/L (98-107); Glucose 155 mg/dL (74-106); Potassium 3.6 mmol/L (3.5-5.1)
[2023-12-12 11:33] LABS: Bilirubin, Total 1.3 mg/dL (0.2-1.0); Sodium 133 mmol/L (136-145); Total Protein 5.3 g/dL (5.7-8.2)
[2023-12-12] MEDS: LACTULOSE 20Gm/30ML SOLN PO ONE (13:00)
[2023-12-12] MEDS: SPIRONOLACTONE 25 MG TAB PO ONE (16:13)
[2023-12-12] MEDS: FUROSEMIDE 40 MG TAB PO ONE (16:13)
[2023-12-12] MEDS ORDERED: FUROSEMIDE 40 MG/4 ML VIAL IV SCH (18:00)
[2023-12-12 18:59] LABS: Body Fluid Polymorphonuclear 20 % (0-25); Body Fluid Red Blood Cells 260 CUMM (0-2000); Body Fluid White Blood Cells 270 CUMM (0-200)
[2023-12-12] MEDS: GABAPENTIN 100 MG CAP PO ONE (19:30)
[2023-12-13] VITALS (7 sets, daily range): BP systolic 9–106; BP diastolic 50–81; PULSE 98–117; RESP 16–20; TEMP 97.4–98.2; O2SAT 95–100
[2023-12-13 06:42] LABS: Basophils # (auto) 0.1 10 ^3/uL (0-0.2); Basophils % (auto) 1.2 % (0.0-2.0); Eosinophils # (auto) 0.1 10 ^3/uL (0-0.8); Eosinophils % (auto) 1.5 % (0.0-7.0); Hematocrit 46.6 % (41.0-53.0); Hemoglobin 15.5 g/dL (13.5-17.5); Lymphocytes # (auto) 2.2 10 ^3/uL (0.4-5.4); Lymphocytes % (auto) 24.4 % (10.0-50.0); Mean Corpuscular Hemoglobin 31.9 pg (28.0-32.0); Mean Corpuscular Hgb Conc. 33.3 g/dL (32.0-36.0); Mean Corpuscular Volume 95.7 fL (80.0-100.0); Monocytes # (auto) 0.9 10 ^3/uL (0-1.3); Monocytes % (auto) 10.5 % (0.0-12.0); Neutrophils # (auto) 5.6 10 ^3/uL (1.6-8.6); Neutrophils % (auto) 62.4 % (37.0-80.0); Red Blood Cells 4.87 10^6/uL (4.5-5.90); Red Cell Distribution Width 14.3 % (11.8-14.3); White Blood Cell 8.9 10^3/uL (4.4-10.8)
[2023-12-13 07:05] LABS: Alanine Aminotransferase 49 U/L (7-40); Albumin 3.4 g/dL (3.2-4.8); Alkaline Phosphatase 139 U/L (46-116); Anion Gap 6 (5-15); Aspartate Aminotransferase 85 U/L (13-40); BUN/Creatinine Ratio 15.6 (10.0-20.0); Blood Urea Nitrogen 10 mg/dL (9-23); Calcium 9.2 mg/dL (8.7-10.4); Carbon Dioxide 26 mmol/L (20-30); Chloride 104 mmol/L (98-107); Glucose 86 mg/dL (74-106); Potassium 3.8 mmol/L (3.5-5.1); Sodium 136 mmol/L (136-145); Total Protein 5.9 g/dL (5.7-8.2)
[2023-12-13] MEDS ORDERED: SPIR25TA PO (09:23)
[2023-12-13] MEDS ORDERED: FURO40TA4 PO (09:23)
[2023-12-13] MEDS: LACTULOSE 20Gm/30ML SOLN PO SCH (09:48)
[2023-12-13] MEDS: SPIRONOLACTONE 25 MG TAB PO SCH (09:49)
[2023-12-13] MEDS: FUROSEMIDE 40 MG TAB PO SCH (09:50)
[2023-12-13] MEDS: GABAPENTIN 100 MG CAP PO SCH (10:00)
[2023-12-13] MEDS ORDERED: SPIRONOLACTONE 25 MG TAB PO SCH (10:00)
[2023-12-13 12:18] LABS: Body Fluid Polymorphonuclear 10 % (0-25); Body Fluid Red Blood Cells 250 CUMM (0-2000); Body Fluid White Blood Cells 548 CUMM (0-200)
[2023-12-13 13:08] LABS: Protein, Body Fluid 2.2 g/dL (.)
[2023-12-14 09:22] LABS: Hepatitis A Total Antibody Positive (Negative); Hepatitis B Surface Antibody Positive (Negative); Hepatitis B Surface Antigen Negative (Negative); Hepatitis C Antibody Negative (Negative)
[2023-12-14 12:06] LABS: Protein, Body Fluid 2.4 g/dL (.)
== END 2023-12-13 20:35 | disposition home or self-care (01) | DRG 282 ==
LOC: ER 19:19 → TELE 12-10 11:17 → ER 12-10 11:17 → TELE-EAST 12-10 17:07
PROVIDERS: ADMIT Internal Medicine Pulmonary Disease; ATTEND Internal Medicine Pulmonary Disease
PROC: 0W993ZZ Drainage of Right Pleural Cavity, Percutaneous Approach (ICD-10-PCS; 2023-12-12)
PROC: 0W9B3ZZ Drainage of Left Pleural Cavity, Percutaneous Approach (ICD-10-PCS; principal; 2023-12-13)
DX: K85.90 Acute pancreatitis without necrosis or infection, unspecified (principal); J96.01 Acute respiratory failure with hypoxia; I50.23 Acute on chronic systolic (congestive) heart failure; J15.69 Pneumonia due to other Gram-negative bacteria; E46 Unspecified protein-calorie malnutrition; J91.8 Pleural effusion in other conditions classified elsewhere; J15.9 Unspecified bacterial pneumonia; K70.11 Alcoholic hepatitis with ascites; E87.1 Hypo-osmolality and hyponatremia; R62.7 Adult failure to thrive; K76.0 Fatty (change of) liver, not elsewhere classified; F15.10 Other stimulant abuse, uncomplicated; F19.239 Other psychoactive substance dependence with withdrawal, unspecified; J98.11 Atelectasis; K80.20 Calculus of gallbladder without cholecystitis without obstruction; F41.9 Anxiety disorder, unspecified; Y95 Nosocomial condition; F10.239 Alcohol dependence with withdrawal, unspecified; Y90.9 Presence of alcohol in blood, level not specified; F17.210 Nicotine dependence, cigarettes, uncomplicated; E87.6 Hypokalemia; Z86.711 Personal history of pulmonary embolism; Z79.899 Other long term (current) drug therapy; Z68.1 Body mass index [BMI] 19.9 or less, adult
CPT/HCPCS: 32555; 36415; 71045; 74176; 76700; 76942; 80053; 80202; 80307; 80320; 81001; 82140; 82270; 83605; 83615; 83690; 83986; 84484; 85025; 85610; 86704; 86706; 86708; 86803; 87040; 87205; 87340; 89051; G0378; J0692